=== PATIENT | male | born 1960 ===

== ENCOUNTER 2018-11-19 15:58 | Outpatient (CLI) | payer OTHER ==
--- NOTE | 2018-11-19 21:43 | XRay Report ---
PROCEDURE: XR KNEE 1-2V RT TECHNIQUE: AP and lateral views of the right knee HISTORY: RIGHT MEDIAL KNEE PAIN COMPARISONS: None . FINDINGS: No acute fracture or dislocation is seen. The soft tissues demonstrate a small suprapatellar joint ef fusion. Joint spaces are maintained and bony mineralization is normal. Spurring off the posterior patella and tibial spines is noted. IMPRESSION: No acute bony abnormality in the right knee. Small joint effusion. This document is electronically signed by Denisse Kaye MD., November 19 2018 09:41:26 PM ET
== END 2018-11-19 15:59 | disposition home or self-care (01) ==
LOC: XRAY 15:58
DX: M25.461 Effusion, right knee (principal)